=== PATIENT | female | born 1940 | race Caucasian/White ===

== ENCOUNTER 2020-12-24 11:08 | Outpatient (CLI) | payer MEDICARE, OTHER, SELFPAY ==
[2020-12-24 11:32] LABS: Hematocrit 41.1 % (37.0-47.0); Hemoglobin 13.5 g/dL (12.0-15.0)
[2020-12-24 11:43] LABS: Anion Gap 7 mmol/L (8-16); Blood Urea Nitrogen 12 mg/dL (7-17); Calcium 9.3 mg/dL (8.4-10.2); Carbon Dioxide 29 mmol/L (22-30); Chloride 99 mmol/L (98-107); Estimated Glomerular Filt Rate > 60; Glucose 103 mg/dL (65-110); Potassium 3.6 mmol/L (3.4-5.0); Sodium 135 mmol/L (137-145)
== END 2020-12-24 11:09 | disposition home or self-care (01) ==
LOC: ANHSURGERY 11:11
PROVIDERS: Anesthesiology; PCP Internal Medicine; Visit Provider Obstetrics & Gynecology
DX: Z01.812 Encounter for preprocedural laboratory examination (principal); N95.0 Postmenopausal bleeding; Z51.81 Encounter for therapeutic drug level monitoring; Z79.899 Other long term (current) drug therapy
CPT/HCPCS: 36415; 80048; 85014; 85018

== ENCOUNTER 2020-12-30 01:13 | Day surgery (SDC) | payer MEDICARE, OTHER, SELFPAY ==
[2020-12-20 12:27] VITALS: BMI 30.7
--- NOTE | 2020-12-24 13:10 | P.HP_ITS ---
H&P: HPI History of Present Illness Date/Time: 12/24/20 13:10 this is an 79-year-old female admitted for hysteroscopy dilatation curettage. She has had some mild postmenopausal bleeding. This was recently scheduled May and with the risks of COVID risks and benefits of this procedure reviewed in full Chief Complaint: postmenopausal bleeding Review of Systems Review of Systems: All systems reviewed & are unremarkable except as noted in HPI and below [facility] Social History Social History Smoking packs per day: 1.5 Smoking cigarettes per day: 30.0 Years smoked: 40 Smoking pack-years: 60.00 Smoking status: Former smoker Tobacco type: cigarettes Smoking end date: 10/31/92 Alcohol intake: current Substance use: never Additional living arrangements comments: S[facility] STAYS AT [facility] [phone] Spiritual care concerns: No Meds Home Medications and Allergies Home Medications Medication Instructions Recorded Confirmed Type albuterol sulfate [ProAir HFA] 1 puff INHALATION Q4-6H PRN 12/20/20 12/20/20 History amitriptyline 25 mg PO HS 12/20/20 12/20/20 History aspirin [Adult Low Dose Aspirin] 81 mg PO DAILY 12/20/20 12/20/20 History bimatoprost [Lumigan] 1 drp EACH EYE 12/20/20 12/20/20 History gabapentin 100 mg PO 12/20/20 12/20/20 History losartan-hydrochlorothiazide 0.5 tablet PO HS 12/20/20 12/20/20 History losartan-hydrochlorothiazide 1 tablet PO REPLACED BY [facility] 12/20/20 12/20/20 History rosuvastatin 10 mg PO 12/20/20 12/20/20 History Allergies Allergy/AdvReac Type Severity Reaction Status Date / Time acetaminophen [From Tylenol] Allergy Itching Verified 12/20/20 12:18 levofloxacin [From Levaquin] Allergy VISION Verified 12/20/20 12:18 CHANGES, DIZZINESS Exam Const: General: no acute distress Eyes: General: appearance normal, both eyes and all related structures Neck: Neck: supple and no JVD Thyroid: thyroid normal Resp: Effort & Inspection: normal respiratory effort Auscultation: clear to auscultation bilaterally Cardio: Rate: regular rate Rhythm: regular rhythm GI: Inspection: non-distended GI Palp: Yes Soft to palpation, No Tenderness to palpation present (GI) and No Guarding due to palpation present (GI) Auscultation: normal bowel sounds : External Female Exam: normal external appearance Speculum Exam - Vagina: normal appearance of the vagina Speculum Exam - Cervix: Cervical os closed Bimanual exam- vagina & uterus: uterine shape normal Bimanual Exam- Adnexa, other: adnexae mobile Skin: General skin exam: no rashes or lesions noted Extrem: General: normal to inspection and no edema Psych: Mental Status: mental status grossly normal Affect: normal affect Assessment and Plan Additional Plan impression: Postmenopausal bleeding Plan: Hysteroscopy/ dilatation and curettage
--- NOTE | 2020-12-30 06:15 | WPDHPUPDATE1 ---
History and Physical Update Update Date/Time: 12/30/20 06:15 History and Physical has been reviewed, including an updated exam of the patient. There are NO changes in the patient's condition. Risks, benefits, and alternatives have been discussed and questions answered. Patient agrees to proceed with procedure.
--- NOTE | 2020-12-30 12:03 | WPDANESEPPF ---
Anes - Initial Pre Proc Eval Procedure: Operation Date: 12/30/20 13:15 Proposed Procedures p Hysteroscopy, Dilation and Curettage - Aristeo Li MD Date/Time: 12/30/20 12:03 Surgeon: Aristeo Li MD Pre Op Diagnosis: Post Memopausal Bleeding Patient Data Age: 80 Gender: F Height: 1.61 m Weight: 80 kg Allergies Allergy/AdvReac Type Severity Reaction Status Date / Time acetaminophen [From Tylenol] Allergy Itching Verified 12/30/20 11:38 levofloxacin [From Levaquin] Allergy VISION Verified 12/30/20 11:38 CHANGES, DIZZINESS Home Medications Medication Instructions Recorded Confirmed Type albuterol sulfate [ProAir HFA] 1 puff INHALATION Q4-6H PRN 12/20/20 12/30/20 History amitriptyline 25 mg PO HS 12/20/20 12/30/20 History aspirin [Adult Low Dose Aspirin] 81 mg PO DAILY 12/20/20 12/30/20 History bimatoprost [Lumigan] 1 drp EACH EYE HS 12/20/20 12/30/20 History gabapentin 100 mg PO HS 12/20/20 12/30/20 History losartan-hydrochlorothiazide 0.5 tablet PO HS 12/20/20 12/30/20 History losartan-hydrochlorothiazide 1 tablet PO QA 12/20/20 12/30/20 History rosuvastatin 10 mg PO HS 12/20/20 12/30/20 History Patient hx anesthesia problems: none Family hx anesthesia problems: none PMFSH Past Medical History Medical History COPD (chronic obstructive pulmonary disease) Hyperlipidemia Hypertension Occipital neuralgia Trigeminal neuralgia Social History Social History Smoking packs per day: 1.5 Smoking cigarettes per day: 30.0 Years smoked: 40 Smoking pack-years: 60.00 Smoking status: Former smoker Tobacco type: cigarettes Smoking end date: 10/31/92 Alcohol intake: current Substance use: never Living arrangements: alone Additional living arrangements comments: SON STAYS AT [facility] HOU[facility] [phone] Spiritual care concerns: No Anes - Eval Final PreProcedure Day of Procedure 12/30/20 12:03 Patient weight: overweight Heart: regular rate and rhythm Lungs: decreased breath sounds Airway: Mallampati scale class II Neurological: alert and oriented Last oral intake: >/= 8 hours ASA classification: III Emergent: no Anesthetic plan: proceed Anesthesia type and monitoring: general GIVS and standard monitoring Informed Consent: The patient's anesthetic plan and its attendant risks and benefits were discussed with the patient/family/POA. Questions were solicited and answers provided to the satisfaction of the patient/family/POA.
[2020-12-30 12:06] VITALS: BP 144/64; PULSE 77; TEMP 36.8; O2SAT 99
[2020-12-30] MEDS: LACTATED RINGERS 1,000 ML 30 ML IV CONT (12:08)
--- NOTE | 2020-12-30 13:31 | P.OP_ITS ---
Procedure Note - Detailed Date of Procedure 12/30/20 Pre-op Diagnosis Post Memopausal Bleeding Post-op Diagnosis same Procedure Performed Hysteroscopy/dilatation and curettage Surgeon Aristeo Li MD Anesthesia MAC and local Indications This is an 80-year-old female with questionable post menopausal bleeding Findings Uterus sounded to 7cm with a very benign atrophic endometrium Description of Procedure The patient is prepped draped in the normal sterile fashion placed in the dorsal lithotomy position. Under excellent IV sedation weighted speculum placed in posterior fornix vagina. The anterior lip of the cervix grasped with a single- tooth tenaculum and 2.5cc of 1% xylocaine anesthesia placed at 2, 4, 8, 10:00 a.m. of the cervix. Uterus sounded to 7cm. Serial dilatation with fragmented dilators performed followed by passage of the 5mm visualizing hysteroscope. Normal saline was used as visualizing medium. No abnormalities were seen in photo documentation undertaken. The uterus was scraped over the entire 360? until a good grating sound was heard. When no further tissue removed the instruments removed. All sponge, needle, instrument counts were correct. Estimated Blood Loss 5 Packing No Pathology yes Complications No immediate complications Condition stable Disposition observation
[2020-12-30 13:37] VITALS: BP 148/67; PULSE 70; RESP 12; O2SAT 98
[2020-12-30 14:07] VITALS: BP 140/71; PULSE 65; RESP 12; O2SAT 99
[2020-12-30 14:37] VITALS: BP 158/71; PULSE 58; RESP 12; O2SAT 100
[2020-12-30 14:45] VITALS: BP 169/72; PULSE 62; RESP 12
== END 2020-12-30 14:55 | disposition home or self-care (01) ==
PROVIDERS: PCP Internal Medicine; Visit Provider Obstetrics & Gynecology
PROC: 0U5B8ZZ Destruction of Endometrium, Via Natural or Artificial Opening Endoscopic (ICD-10-PCS; CPT 58563; principal; 2020-12-30 13:15)
DX: N92.4 Excessive bleeding in the premenopausal period (principal); N85.8 Other specified noninflammatory disorders of uterus; Z87.891 Personal history of nicotine dependence; Z79.82 Long term (current) use of aspirin; Z79.51 Long term (current) use of inhaled steroids; J44.9 Chronic obstructive pulmonary disease, unspecified; I10 Essential (primary) hypertension; M54.81 Occipital neuralgia; G50.0 Trigeminal neuralgia
CPT/HCPCS: 58558; 88305; A9270; J2704; J3010; J7030; J7120

== ENCOUNTER 2022-05-25 09:45 | Inpatient (IN) | payer MEDICARE, OTHER, SELFPAY ==
[2022-05-25] VITALS (26 sets, daily range): BP systolic 114–154; BP diastolic 46–85; PULSE 65–98; RESP 13–22; TEMP 36.3–36.6; O2SAT 96–100; BMI 31.7
--- NOTE | ~2022-05-25 | US_ITS ---
Limited Abdominal Sonogram: Real-time sonographic imaging of the right upper quadrant was performed. Clinical History: Cirrhosis Findings: The liver appears normal with no evidence of mass lesion or bile duct dilatation. Main por glenn vein demonstrates normal direction of flow. The gallbladder is absent, compatible prior cholecyst ectomy. The common bile duct measures 5 mm. The visualized pancreas, aorta, and IVC are unremarkable . Right kidney measures 10 point centimeters in length, without evidence of hydronephrosis. Simple ri ght renal cyst measures 3.3 cm in diameter. Impression: Status post cholecystectomy. No other significant finding. Reviewed, dictated and finalized at location . IFIED ADDICTION COUNSELOR Impression: Status post cholecystectomy. No other significant finding.
--- NOTE | ~2022-05-25 | BM_ITS ---
EXAMINATION: CCL bone marrow asp w bx diag DATE: 05/27/2022 10:45 INDICATION: Pancytopenia. TECHNIQUE: A time-out was performed to verify the patient's name, date of , and procedure to b e performed. The procedure including the risks, benefits, and alternatives was discussed with the pat ient. Risks discussed included bleeding and infection. The patient understood the risks and agreed to proceed. The skin overlying the left ilium was prepped and draped in usual sterile fashion. Anesth etic was administered with 1% lidocaine subcutaneously. Moderate sedation was achieved with 1 mg Vers ed IV and 50 mg IV. An 11 gauge needle was inserted into the ilium with fluoroscopic guidance. Bone marrow was aspirated. An 8 gauge needle was then inserted into the ilium with fluoroscopic guidance. A core bone marrow biopsy was obtained. There were no immediate complications. Fluoroscopy exposure t jen was 0.0 minutes. The total number of images was 15. FINDINGS: Real-time fluoroscopy demonstrates a marker overlying the left posterior superior iliac spi ne. IMPRESSION: 1. Fluoro-guided bone marrow aspiration. 2. Fluoro-guided bone marrow core biopsy. Reviewed, dictated and finalized at location A. ERAGE BRANCH MANAGER
--- NOTE | ~2022-05-25 | XR_ITS ---
Clinical Indication: Shortness of breath PA and lateral views of the chest: Comparison: None Findings: The lungs are clear, without evidence of focal consolidation or pleural effusion. Cardiome diastinal silhouette is within normal limits. Bones and soft tissues are unremarkable. Impression: Normal chest. Reviewed, dictated and finalized at [facility]. CY WRITER Impression: Normal chest.
--- NOTE | 2022-05-25 09:56 | ECG_ITS ---
Measurements Intervals [place] Rate: 79 P: 69 SD: 222 QRS: -27 QRSD: 96 T: 66 QT: 369 QTc: 425 Interpretive Statements SINUS RHYTHM WITH FIRST DEGREE AV BLOCK CHANGE IN QRS MORPHOLOGY FROM LEFT BUNDLE BRANCH BLOCK TO NARROW COMPLEX INTERMITTENTLY LEFT VENTRICULAR HYPERTROPHY AND ST-T CHANGE CANNOT RULE OUT SEPTAL INFARCT, AGE INDETERMINATE BASELINE ARTIFACT- I, II, III, AVR, AVL, AVF, V1 ABNORMAL ECG NO PREVIOUS ECG AVAILABLE FOR COMPARISON Electronically Signed On 05-25-2022 11:04:13 PORTABLE TRACK CREW CHIEF by Kael Magallon D.O.
[2022-05-25 10:08] LABS: Immature Platelet Fraction Pct 10.6 % (0.9-11.2); Mean Corpuscular HGB Conc 32.7 g/dl (32-36); Mean Corpuscular Hemoglobin 30.3 pg (26-34); Mean Corpuscular Volume 92.8 fl (80-100); Mean Platelet Volume 11.2 fl (7.4-10.4); Platelet Count Result 68 k/mm3 (150-375); Red Blood Count 2.21 M/mm3 (4.2-5.4)
[2022-05-25 10:17] LABS: Alanine Aminotransferase 14 U/L (6-35); Albumin Level 4.2 g/dL (3.5-5.1); Alkaline Phosphatase 94 U/L (38-126); Anion Gap 8 mmol/L (8-16); Aspartate Amino Transferase 16 U/L (14-36); Bilirubin,Total 0.6 mg/dL (0.2-1.3); Blood Urea Nitrogen 19 mg/dL (7-17); Calcium 8.5 mg/dL (8.4-10.2); Carbon Dioxide 25 mmol/L (22-30); Chloride 103 mmol/L (98-107); Estimated CRCL calculation 54 ml/min; Estimated Glomerular Filt Rate > 60; Glucose 125 mg/dL (65-110); Potassium 3.2 mmol/L (3.4-5.0); Sodium 136 mmol/L (137-145)
[2022-05-25 10:31] LABS: White Blood Count 1.6 K/mm3 (4.5-10.0)
[2022-05-25 10:32] LABS: Hematocrit 20.5 % (37.0-47.0); Hemoglobin 6.7 g/dL (12.0-15.0)
[2022-05-25 10:39] LABS: Anisocytosis 1+ (NORMAL); Lymphocytes Absolute Manual 1.05 K/mm3 (1.1-4.5); Lymphocytes Percent Manual 66 % (18-44); Monocytes Absolute Manual 0.03 K/mm3 (0.1-0.90); Monocytes Percent Manual 2 % (3-9); Neutrophils Percent Manual 32 % (46-73); Platelet Estimate Decreased (Adequate); Total Cells Counted 100
[2022-05-25 10:40] LABS: Schistocytes None Seen (NORMAL)
[2022-05-25 11:38] LABS: Immature Reticulocyte Fraction 10.9 % (3.0-15.9); Reticulocytes Absolute 0.01 B/L (32.2-175.7)
[2022-05-25 11:46] LABS: Lactate Dehydrogenase 149 U/L (120-246)
[2022-05-25 11:53] LABS: Transferrin 161 mg/dL (206-381)
[2022-05-25 12:24] LABS: Iron 213 ug/dL (37-170); Percent Iron Saturation 84 % (20-50)
[2022-05-25] MEDS: SODIUM CHLORIDE 0.9% IV 250 ML 30 ML IV CONT (12:42)
[2022-05-25 12:53] LABS: Folic Acid 12.9 ng/mL (2.76->20)
--- NOTE | 2022-05-25 13:07 | ED.SOB ---
HPI - SOB/Dyspnea General Chief Complaint: Shortness of Breath/Dyspnea Stated Complaint: sob/pos anemia Time Seen by Provider: 05/25/22 10:49 History of Present Illness HPI Narrative: Patient is an 81-year-old female who presents ER with shortness of breath and concern for possible anemia. Patient recently hospitalized at [facility] due to being anemic. She received transfusion. She was supposed to follow-up with oncology today but became profoundly short of breath last night and when she called the clinic today they recommended she come to the ER. She is not on any blood thinners. No dark black stools. No fevers chills or sweats. No chest pain or chest pressure. Related Data Home Medications Medication Instructions Recorded Confirmed albuterol sulfate 90 mcg/actuation 1 puff inhalation Q4-6H PRN Dyspnea 12/20/20 05/25/22 aerosol inhaler (ProAir HFA) aspirin 81 mg tablet,delayed 81 mg PO HS 12/20/20 05/25/22 release (Adult Low Dose Aspirin) bimatoprost 0.01 % eye drops 1 drp EACH EYE HS 12/20/20 05/25/22 (Lumigan) gabapentin 100 mg capsule 100 mg PO HS 12/20/20 05/25/22 losartan 50 mg-hydrochlorothiazide 0.5 tablet PO HS 12/20/20 05/25/22 12.5 mg tablet losartan 50 mg-hydrochlorothiazide 1 tablet PO QAM 12/20/20 05/25/22 12.5 mg tablet rosuvastatin 10 mg tablet 10 mg PO HS 12/20/20 05/25/22 Allergies Allergy/AdvReac Type Severity Reaction Status Date / Time levofloxacin [From Levaquin] Allergy Intermediate VISION Verified 05/25/22 17:56 CHANGES, DIZZINESS acetaminophen [From Tylenol] Allergy Mild Itching Verified 05/25/22 17:56 Review of Systems Review of Systems: All systems reviewed & are unremarkable except as noted in HPI and below Constitutional: Constitutional: Denies chills, Reports fatigue and Denies fever(s) ENT: Denies nasal congestion and Denies sore throat Cardiovascular: Cardiovascular: Denies chest pain, Denies rapid heart rate and Denies radiating jaw, neck or arm pain Respiratory: Respiratory: Reports dyspnea and Denies wheezing Gastrointestinal: Gastrointestinal: Denies abdominal pain, Denies nausea and Denies vomiting Genitourinary: Genitourinary: Denies nocturia, Denies dysuria and Denies flank pain PMFSH Past Medical History Medical History COPD (chronic obstructive pulmonary disease) Hyperlipidemia Hypertension Occipital neuralgia Trigeminal neuralgia Family History Family History (Updated 05/25/22 @ 17:58 by Laura Ardon RN) Father Emphysema lung Chronic obstructive pulmonary disease Mother Colon cancer Hypertension Social History Social History Smoking packs per day: 2 Smoking cigarettes per day: 40.0 Years smoked: 40 Smoking pack-years: 80.00 Smoking status: Former smoker Tobacco type: cigarettes Smoking end date: 10/31/92 Additional smoking assessment comments: quit in 1994 (smoked 2 packs for over 40 years) Alcohol intake: never Substance use: never Lack of Transportation: No Lack of Food: Never True Current Housing: I Have Housing Concerned About Future Housing: No Difficulty Paying Gas/Electric Bills: No Difficulty Paying for Meds: No Currently Unemployed: No Education: High School Diploma/GED Difficulty w/ Childcare or Family Care: No Living arrangements: alone Additional living arrangements comments: [facility] STAYS AT [facility]-[phone] Spiritual care concerns: No Exam Narrative: GENERAL: Well-appearing, well-nourished, and in no acute distress. HEAD: Normocephalic, atraumatic. EYES: PERRL and EOMI. ENT: Mucous membranes moist. CHEST: Clear to auscultation. No respiratory distress. HEART: Regular rate and rhythm. Normal peripheral pulses. ABDOMEN: Soft, nontender, nondistendeds. EXTREMITIES: Normal range of motion. No edema. SKIN: Warm, dry,
--- NOTE | 2022-05-25 15:30 | PM.IMHP ---
H&P: HPI History of Present Illness Date/Time: 05/25/22 15:30 Chief Complaint: Shortness of breath. Narrative: This is a very pleasant 81-year-old female with hypertension, dyslipidemia, peripheral neuropathy, and COPD who presented to the emergency department via private vehicle from home for evaluation of shortness of breath. Patient provides the following history. She has not been feeling well for nearly a month with generalized malaise, fatigue, and lack of energy. She started to feel short of breath the last week in April and she was hospitalized at [facility] on 05/01/2022 with symptomatic anemia. She was transfused 3 units of blood and discharged home. It was suspected that she may have some sort of hematologic malignancy and she was referred to Dr. Del Rosario. In fact she had an appointment with him this morning at 10:00 however she was directed to the ED instead for evaluation of increasing shortness of breath with minimal activity in addition to lightheadedness. Her vital signs were stable on arrival to the ED. CBC showed the following: WBC 1.6, RBC 2.21, hemoglobin 6.7, hematocrit 20.5, MCV 92, platelets 64. Manual differential showed 32 neutrophils, 66 lymphocytes, 2 monocytes. She is being admitted in this setting for blood transfusion and hematology consultation. Patient's weight has remained stable. She has not noticed any in swollen lymph nodes. No known history of malignancy. She has not noticed any blood in her stools. Review of Systems Review of Systems: Twelve systems were reviewed and are negative except for as per HPI. [facility] Past Medical History Medical History (Updated 05/25/22 @ 20:08 by Saadia Vidal PA-C) Chronic obstructive pulmonary disease Hyperlipidemia Hypertension Occipital neuralgia Peripheral neuropathy Trigeminal neuralgia Surgical History Surgical History (Updated 05/25/22 @ 20:03 by Saadia Vidal PA-C) History of appendectomy History of cholecystectomy History of right knee joint replacement Family History Family History Father Emphysema lung Chronic obstructive pulmonary disease Mother Colon cancer Hypertension Social History Social History (Updated 05/25/22 @ 20:04 by Saadia Vidal PA-C) Social History: Surrogate medical decision maker: Asa Pascal, son. Code status: Full code. Smoking packs per day: 2 Smoking cigarettes per day: 40.0 Years smoked: 40 Smoking pack-years: 80.00 Smoking status: Former smoker Tobacco type: cigarettes Smoking end date: 10/31/92 Additional smoking assessment comments: Quit in 1994. Alcohol intake: never Substance use: never Lack of Transportation: No Lack of Food: Never True Current Housing: I Have Housing Concerned About Future Housing: No Difficulty Paying Gas/Electric Bills: No Difficulty Paying for Meds: No Currently Unemployed: No Education: High School Diploma/GED Difficulty w/ Childcare or Family Care: No Living arrangements: alone Additional living arrangements comments: The patient lives in her own home in [place]. Her son Asa stays with her occasionally. Additional occupation/education comments: Retired. Spiritual care concerns: No Meds Home Medications and Allergies Home Medications Medication Instructions Recorded Confirmed Type albuterol sulfate 90 mcg/actuation 1 puff inhalation Q4-6H PRN Dyspnea 12/20/20 05/25/22 History aerosol inhaler (ProAir HFA) aspirin 81 mg tablet,delayed 81 mg PO HS 12/20/20 05/25/22 History release (Adult Low Dose Aspirin) bimatoprost 0.01 % eye drops 1 drp EACH EYE HS 12/20/20 05/25/22 History (Lumigan) gabapentin 100 mg capsule 100 mg PO HS 12/20/20 05/25/22 History losartan 50 mg-hydrochlorothiazide 0.5 tablet PO HS 12/20/20 05/25/22 History 12.5 mg tablet losartan 50 mg-hydrochlorothiazide 1 tablet PO QAM 12/20/20 05/25/22 Hi
[2022-05-25 17:22] LABS: INR 1.1; Prothrombin Time 13.8 Seconds (11.1-14.7)
[2022-05-25 17:23] LABS: Partial Thromboplastin Time 25.6 SECONDS (22.3-36.8)
--- NOTE | 2022-05-25 17:50 | ADMGEN ---
This patient, Barbara Pascal, was admitted to [facility]. Patient/family oriented to hospital policies and general routines including ID bracelet, bed and alarms, visiting hours, pain management, procedures, bathroom and other care routines, personal items, smoking policy, room service/diet, and visiting hours. Information on how to activate the Rapid Response Team has been discussed. Patient/Family are encouraged to report perceived risks to care and to ask questions if they do not understand what they are told or what they should do.
[2022-05-25 19:18] LABS: Hematocrit 25.7 % (37.0-47.0); Hemoglobin 8.7 g/dL (12.0-15.0); Immature Platelet Fraction Pct 11.1 % (0.9-11.2); Mean Corpuscular HGB Conc 33.9 g/dl (32-36); Mean Corpuscular Hemoglobin 31.1 pg (26-34); Mean Corpuscular Volume 91.8 fl (80-100); Mean Platelet Volume 11.3 fl (7.4-10.4); Platelet Count Result 64 k/mm3 (150-375); Red Cell Distribution Width 15.9 % (11.5-14.5)
[2022-05-25 19:20] LABS: White Blood Count 1.9 K/mm3 (4.5-10.0)
[2022-05-25] MEDS: ROSUVASTATIN 10 MG TABLET PO (20:33)
[2022-05-25] MEDS: GABAPENTIN 100 MG CAPSULE PO (20:33)
[2022-05-25] MEDS: POTASSIUM CHLORIDE 20 MEQ TABLET 40 MEQ PO (20:33)
[2022-05-25] MEDS: LATANOPROST 0.005% OP SOLN 2.5 ML BTL 1 DROP EACH EYE (21:02)
[2022-05-25] MEDS: LOSARTAN POTASSIUM 25 MG TABLET PO (21:02)
[2022-05-26] VITALS (11 sets, daily range): BP systolic 119–141; BP diastolic 50–70; PULSE 71–93; RESP 16–24; TEMP 36.6–37.3; O2SAT 96–98
[2022-05-26 06:17] LABS: Anion Gap 2 mmol/L (8-16); Blood Urea Nitrogen 12 mg/dL (7-17); Calcium 8.1 mg/dL (8.4-10.2); Carbon Dioxide 27 mmol/L (22-30); Chloride 105 mmol/L (98-107); Estimated CRCL calculation 62 ml/min; Estimated Glomerular Filt Rate > 60; Glucose 103 mg/dL (65-110); Hematocrit 23.4 % (37.0-47.0); Hemoglobin 7.9 g/dL (12.0-15.0); Immature Platelet Fraction Pct 9.9 % (0.9-11.2); Magnesium 1.9 mg/dL (1.6-2.3); Mean Corpuscular HGB Conc 33.8 g/dl (32-36); Mean Corpuscular Hemoglobin 30.7 pg (26-34); Mean Corpuscular Volume 91.1 fl (80-100); Mean Platelet Volume 11.6 fl (7.4-10.4); Platelet Count Result 57 k/mm3 (150-375); Potassium 3.6 mmol/L (3.4-5.0); Red Blood Count 2.57 M/mm3 (4.2-5.4); Red Cell Distribution Width 16.6 % (11.5-14.5); Sodium 134 mmol/L (137-145)
[2022-05-26 06:21] LABS: White Blood Count 1.8 K/mm3 (4.5-10.0)
--- NOTE | 2022-05-26 06:35 | ADMGEN ---
This patient, Barbara Pascal, was admitted to [facility] at 0635. Patient/family oriented to hospital policies and general routines including ID bracelet, bed and alarms, visiting hours, pain management, procedures, bathroom and other care routines, personal items, smoking policy, room service/diet, and visiting hours. Information on how to activate the Rapid Response Team has been discussed. Patient/Family are encouraged to report perceived risks to care and to ask questions if they do not understand what they are told or what they should do.
[2022-05-26 06:46] LABS: Anisocytosis 2+ (NORMAL); Band Neutrophils Percent 5 % (0-6); Large Platelets Present; Lymphocytes Absolute Manual 1.08 K/mm3 (1.1-4.5); Metamyelocytes Percent 5 %; Monocytes Absolute Manual 0.05 K/mm3 (0.1-0.90); Monocytes Percent Manual 3 % (3-9); Myelocytes Percent 4 %; Neutrophils Percent Manual 23 % (46-73); Platelet Estimate Decreased (Adequate); Total Cells Counted 100
[2022-05-26 06:47] LABS: Hypochromasia 2+ (NORMAL); Schistocytes Rare (NORMAL)
[2022-05-26] MEDS: LOSARTAN POTASSIUM 50 MG TABLET PO (08:33)
--- NOTE | 2022-05-26 18:10 | PM.IMPN ---
Progress Note: A&P Assessment and Plan (1) Symptomatic anemia: Code(s): D64.9 - Anemia, unspecified Status: Acute (2) Pancytopenia: Code(s): D61.818 - Other pancytopenia Status: Acute (3) Hypokalemia: Code(s): E87.6 - Hypokalemia Status: Acute (4) Hypertension: Code(s): I10 - Essential (primary) hypertension Status: Acute (5) Hyperlipidemia: Code(s): E78.5 - Hyperlipidemia, unspecified Status: Acute (6) Chronic obstructive pulmonary disease: Code(s): J44.9 - Chronic obstructive pulmonary disease, unspecified Status: Acute (7) Peripheral neuropathy: Code(s): G62.9 - Polyneuropathy, unspecified Status: Acute Plan The patient presented to the ED for evaluation of shortness of breath, lightheadedness, fatigue, and weakness which has been getting progressively worse over the last several weeks. Recently hospitalized at [facility] for the same issue at which time she was transfused 3 units of blood. She was referred to Dr. Del Rosario for suspected hematologic malignancy. Patient feels better after transfusion. Dr Del Rosario has been consulted. Medications reviewed and these do not commonly cause pancytopenia. Iron studies noted - does not seem to have been drawn during the transfusion. Check RUQ US to check for cirrhosis. Hemochromatosis seems unlikely. BMB planned. BP well controlled. Potassium better now. Follow. No wheezing and lungs clear. Home tomorrow after BMB. Subjective Date/time seen: 05/26/22 18:10 Interval history: 81yo female with COPD and HTN here for shortness of breath and found to have pancytopenia. Feels better after treansfusion. No SOB or CP but has LEWIS walking back from the BR. No easy bruising. No bleeding gums. Exam Narrative: AF 99.1 119/51 93 16 98%ra Gen - NARD Chest - CTA bilaterally, nml RR CV - RRR S1/S2 Abd - Soft, NT/ND, Positive BS Ext - No pedal edema Neuro - Alert and appropriate Psych - Nml mood and affect Skin - Warm and dry Objective Data Vital Signs Vital Signs: Vital Signs - 24 hr 05/25/22 20:00 05/25/22 21:53 05/26/22 05:52 Temperature 97.3 F L 98.2 F Pulse Rate 72 86 71 Respiratory Rate 14 19 19 Blood Pressure 149/61 H 125/50 L Pulse Oximetry 100 98 96 Oxygen Delivery Room Air 05/26/22 08:31 05/26/22 08:00 05/26/22 09:34 Temperature 97.9 F Pulse Rate 74 Respiratory Rate 16 Blood Pressure 126/51 L 129/70 Pulse Oximetry 98 98 Oxygen Delivery Room Air 05/26/22 09:36 05/26/22 09:38 05/26/22 14:00 Temperature 99.1 F Pulse Rate 93 Respiratory Rate 16 Blood Pressure 129/66 135/67 119/51 L Pulse Oximetry 98 Oxygen Delivery Intake/Output Intake/Output: Intake & Output 05/23/22 05/24/22 05/25/22 05/26/22 23:59 23:59 23:59 23:59 Intake Total 950 840 Output Total 451 Balance 950 389 Meds/Results Medications: Active Medications Generic Name Dose Route Start Last Admin Trade Name Freq PRN Reason Stop Dose Admin Albuterol 1 puff 05/25/22 20:16 Albuterol Sulfate (*Sp) Aerosol 1 Puff INHALATION Q4-6H PRN Dyspnea Gabapentin 100 mg 05/25/22 21:00 05/25/22 20:33 Gabapentin 100 Mg Capsule PO 100 mg HS ELADIA Administration Latanoprost 1 drop 05/25/22 21:00 05/25/22 21:02 Latanoprost 0.005% Op Soln 2.5 Ml Btl EACH EYE 06/24/22 20:59 1 drop HS ELADIA Administration Losartan Potassium 50 mg 05/26/22 09:00 05/26/22 08:33 Losartan Potassium 50 Mg Tablet PO 06/25/22 08:59 50 mg QAM ELADIA Administration Losartan Potassium 25 mg 05/25/22 21:00 05/25/22 21:02 Losartan Potassium 25 Mg Tablet PO 06/24/22 20:59 25 mg HS ELADIA Administration Ondansetron HCl 4 mg 05/25/22 13:00 Ondansetron Inj 4 Mg/2 Ml Vial IV PUSH Q4H PRN Nausea Rosuvastatin Calcium 10 mg 05/25/22 21:00 05/25/22 20:33 Rosuvastatin 10 Mg Tablet PO 10 mg HS ELADIA Administration Ra
--- NOTE | 2022-05-26 18:37 | PDONCCN ---
HPI - Date of Consult Date/Time: 05/26/22 18:37 Requesting Physician: Dana Tidwell MD Primary Care Provider: Garcia Irvin, - Consult Narrative Reason for consult: Pancytopenia Narrative: Barbara Pascal is a 81 year old female with history of COPD, peripheral neuropathy, dyslipidemia and hypertension came into the hospital with increasing shortness of breath. She has been complaining of tiredness and fatigue for several months duration. She has been having some mental fogginess. She denies any melena hematochezia. She was hospitalized at [facility] in April 2020 with symptomatic anemia and received 3 units of packed red blood cell. Now she came into the hospital and the labs revealed hemoglobin of 6.7, [place] [address]. She has received 2 units of packed red blood cell. She denies any previous history of malignancy. Review of Systems - Review of Systems All systems reviewed & are unremarkable except as noted in HPI and [facility] Medical History: Medical History (Last Updated 05/25/22 @ 20:08 by Saadia Vidal PA-C) Chronic obstructive pulmonary disease Hyperlipidemia Hypertension Occipital neuralgia Peripheral neuropathy Trigeminal neuralgia Surgical History: Surgical History (Last Updated 05/25/22 @ 20:03 by Saadia Vidal PA-C) History of appendectomy History of cholecystectomy History of right knee joint replacement Family History: Family History (Last Reviewed 05/25/22 @ 20:03 by Saadia Vidal PA-C) Father Emphysema lung Chronic obstructive pulmonary disease Mother Colon cancer Hypertension - Social History Social History: Social History (Last Updated 05/25/22 @ 20:04 by Saadia Vidal PA-C) Alcohol Use: Alcohol intake: never Substance Use: Substance use: never Others: Spiritual care concerns: No Living Arrangements: Living arrangements: alone Smoking Status: Smoking status: Former smoker Tobacco type: cigarettes Smoking end date: 10/31/92 Smoking Pack-years: Smoking packs per day: 2 Smoking cigarettes per day: 40.0 Years smoked: 40 Smoking pack-years: 80.00 Comments: Additional smoking assessment comments: Quit in 1994. Social Determinants of Health: Has the Lack of Transportation Kept You From Medical Appointments or From Getting Medications?: No Within the Past 12 Months, Were You Worried Whether Your Food Would Run Out Before You Got Money to Buy More?: Never True What is Your Housing Situation Today?: I Have Housing Are You Worried That in the Next 2 Months, You May Not Have Your Own Housing to Live In?: No Do You Have Trouble Paying Your Heating Or Electricity Bill?: No Do You Have Trouble Paying For Medicines?: No Are You Currently Unemployed and Looking for Work?: No Highest Level of Education Completed: High School Diploma/GED Do You Have Trouble With Childcare or the Care of a Family Member?: No Exam - Vital Signs Vital Signs - 24 hr 05/25/22 20:00 05/25/22 21:53 05/26/22 05:52 Temperature 36.3 C L 36.8 C Pulse Rate 72 86 71 Respiratory Rate 14 19 19 Blood Pressure 149/61 H 125/50 L Pulse Oximetry 100 98 96 Oxygen Delivery Room Air 05/26/22 08:31 05/26/22 08:00 05/26/22 09:34 Temperature 36.6 C Pulse Rate 74 Respiratory Rate 16 Blood Pressure 126/51 L 129/70 Pulse Oximetry 98 98 Oxygen Delivery Room Air 05/26/22 09:36 05/26/22 09:38 05/26/22 14:00 Temperature 37.3 C Pulse Rate 93 Respiratory Rate 16 Blood Pressure 129/66 135/67 119/51 L Pulse Oximetry 98 Oxygen Delivery - Exam HEENT: EOMI, PERRLA, mucous membranes moist and pink Neck: supple. No: JVD Lungs: clear to auscultation, normal air movement Heart: no murmurs, gallops, or rubs, regular rhythm, regular rate Abdomen: abdomen soft, non-distended, normal bowel sounds Extremities: normal puls
[2022-05-26] MEDS: GABAPENTIN 100 MG CAPSULE PO (20:52)
[2022-05-26] MEDS: LOSARTAN POTASSIUM 25 MG TABLET PO (20:52)
[2022-05-26] MEDS: ROSUVASTATIN 10 MG TABLET PO (20:52)
[2022-05-26] MEDS: LATANOPROST 0.005% OP SOLN 2.5 ML BTL 1 DROP EACH EYE (20:53)
[2022-05-27 04:29] VITALS: BP 120/48; PULSE 83; RESP 18; TEMP 36.5; O2SAT 97
[2022-05-27 06:46] LABS: Hematocrit 23.4 % (37.0-47.0); Hemoglobin 7.9 g/dL (12.0-15.0); Immature Platelet Fraction Pct 10.3 % (0.9-11.2); Mean Corpuscular HGB Conc 33.8 g/dl (32-36); Mean Corpuscular Volume 91.8 fl (80-100); Mean Platelet Volume 10.7 fl (7.4-10.4); Platelet Count Result 55 k/mm3 (150-375); Red Blood Count 2.55 M/mm3 (4.2-5.4); Red Cell Distribution Width 16.7 % (11.5-14.5)
[2022-05-27 06:54] LABS: Anion Gap 5 mmol/L (8-16); Blood Urea Nitrogen 13 mg/dL (7-17); Calcium 7.9 mg/dL (8.4-10.2); Carbon Dioxide 25 mmol/L (22-30); Chloride 110 mmol/L (98-107); Estimated CRCL calculation 61 ml/min; Estimated Glomerular Filt Rate > 60; Glucose 104 mg/dL (65-110); Lactate Dehydrogenase 102 U/L (120-246); Potassium 3.9 mmol/L (3.4-5.0); Sodium 140 mmol/L (137-145)
[2022-05-27 07:18] LABS: White Blood Count 1.9 K/mm3 (4.5-10.0)
[2022-05-27 07:27] LABS: Atypical Lymphocytes Present; Lymphocytes Percent Manual 74 % (18-44); Monocytes Absolute Manual 0.05 K/mm3 (0.1-0.90); Monocytes Percent Manual 3 % (3-9); Neutrophils Percent Manual 23 % (46-73); Platelet Estimate Decreased (Adequate); Schistocytes None Seen (NORMAL); Total Cells Counted 100
[2022-05-27 07:33] LABS: INR 1.2; Prothrombin Time 14.3 Seconds (11.1-14.7)
[2022-05-27 07:34] LABS: Partial Thromboplastin Time 29.6 SECONDS (22.3-36.8)
[2022-05-27 08:00] VITALS: O2SAT 98
--- NOTE | 2022-05-27 08:41 | PM.IMPN ---
Progress Note: A&P Assessment and Plan (1) Symptomatic anemia: Code(s): D64.9 - Anemia, unspecified Status: Acute (2) Pancytopenia: Code(s): D61.818 - Other pancytopenia Status: Acute (3) Hypokalemia: Code(s): E87.6 - Hypokalemia Status: Acute (4) Hypertension: Code(s): I10 - Essential (primary) hypertension Status: Acute (5) Hyperlipidemia: Code(s): E78.5 - Hyperlipidemia, unspecified Status: Acute (6) Chronic obstructive pulmonary disease: Code(s): J44.9 - Chronic obstructive pulmonary disease, unspecified Status: Acute (7) Peripheral neuropathy: Code(s): G62.9 - Polyneuropathy, unspecified Status: Acute Plan The patient presented to the ED for evaluation of shortness of breath, lightheadedness, fatigue, and weakness which has been getting progressively worse over the last several weeks. Recently hospitalized at [facility] for the same issue at which time she was transfused 3 units of blood. She was referred to Dr. Del Rosario for suspected hematologic malignancy. Patient feels better after transfusion. Dr Del Rosario has been consulted. Medications reviewed and these do not commonly cause pancytopenia. Iron studies noted - does not seem to have been drawn during the transfusion. Check RUQ US to check for cirrhosis. Hemochromatosis seems unlikely. BMB planned. BP well controlled. Potassium better now. Follow. No wheezing and lungs clear. Home tomorrow after BMB. Subjective Date/time seen: 05/27/22 08:41 Interval history: 81yo female with COPD and HTN here for shortness of breath and found to have pancytopenia. Feels better after treansfusion. No SOB or CP but has LEWIS walking back from the BR. No easy bruising. No bleeding gums. Exam Narrative: AF 99.1 119/51 93 16 98%ra Gen - NARD Chest - CTA bilaterally, nml RR CV - RRR S1/S2 Abd - Soft, NT/ND, Positive BS Ext - No pedal edema Neuro - Alert and appropriate Psych - Nml mood and affect Skin - Warm and dry Objective Data Vital Signs Vital Signs: Vital Signs - 24 hr 05/26/22 09:34 05/26/22 09:36 05/26/22 09:38 Temperature Pulse Rate Respiratory Rate Blood Pressure 129/70 129/66 135/67 Pulse Oximetry Oxygen Delivery 05/26/22 14:00 05/26/22 20:00 05/26/22 20:02 Temperature 99.1 F Pulse Rate 93 Respiratory Rate 16 Blood Pressure 119/51 L 130/55 L 141/64 H Pulse Oximetry 98 Oxygen Delivery 05/26/22 20:04 05/26/22 20:00 05/26/22 20:00 Temperature 99.1 F Pulse Rate 93 93 Respiratory Rate 16 16 Blood Pressure 124/54 L 124/54 L Pulse Oximetry 98 98 Oxygen Delivery Room Air 05/26/22 21:45 05/27/22 04:29 05/27/22 08:00 Temperature 99.0 F 97.7 F Pulse Rate 80 83 Respiratory Rate 24 H 18 Blood Pressure 130/55 L 120/48 L Pulse Oximetry 98 97 98 Oxygen Delivery Room Air Intake/Output Intake/Output: Intake & Output 05/24/22 05/25/22 05/26/22 05/27/22 23:59 23:59 23:59 23:59 Intake Total 950 940 50 Output Total 451 250 Balance 950 489 -200 Meds/Results Medications: Active Medications Generic Name Dose Route Start Last Admin Trade Name Freq PRN Reason Stop Dose Admin Albuterol 1 puff 05/25/22 20:16 Albuterol Sulfate (*Sp) Aerosol 1 Puff INHALATION Q4-6H PRN Dyspnea Gabapentin 100 mg 05/25/22 21:00 05/26/22 20:52 Gabapentin 100 Mg Capsule PO 100 mg HS ELADIA Administration Latanoprost 1 drop 05/25/22 21:00 05/26/22 20:53 Latanoprost 0.005% Op Soln 2.5 Ml Btl EACH EYE 06/24/22 20:59 1 drop HS ELADIA Administration Losartan Potassium 50 mg 05/26/22 09:00 05/26/22 08:33 Losartan Potassium 50 Mg Tablet PO 06/25/22 08:59 50 mg QAM ELADIA Administration Losartan Potassium 25 mg 05/25/22 21:00 05/26/22 20:52 Losartan Potassium 25 Mg Tablet PO 06/24/22 20:59 25 mg HS ELADIA Administration Neomycin/Polymyxin/Bacitracin 1 applic 05/26/22 1
--- NOTE | 2022-05-27 08:42 | WPDMODSED ---
Moderate Sedation Note-Pt Data Patient Data Diagnosis: Pancytopenia. Present Complaint: Pancytopenia. Procedure to be performed/Plan: Fluoro-guided bone marrow biopsy of left ilium. Allergies Allergy/AdvReac Type Severity Reaction Status Date / Time levofloxacin [From Levaquin] Allergy Intermediate VISION Verified 05/25/22 17:56 CHANGES, DIZZINESS acetaminophen [From Tylenol] Allergy Mild Itching Verified 05/25/22 17:56 Home Medications Medication Instructions Recorded Confirmed Type albuterol sulfate 90 mcg/actuation 1 puff inhalation Q4-6H PRN Dyspnea 12/20/20 05/25/22 History aerosol inhaler (ProAir HFA) aspirin 81 mg tablet,delayed 81 mg PO HS 12/20/20 05/25/22 History release (Adult Low Dose Aspirin) bimatoprost 0.01 % eye drops 1 drp EACH EYE HS 12/20/20 05/25/22 History (Sruthi) gabapentin 100 mg capsule 100 mg PO HS 12/20/20 05/25/22 History losartan 50 mg-hydrochlorothiazide 0.5 tablet PO 12/20/20 05/25/22 History 12.5 mg tablet losartan 50 mg-hydrochlorothiazide 1 tablet PO QAM 12/20/20 05/25/22 History 12.5 mg tablet rosuvastatin 10 mg tablet 10 mg PO HS 12/20/20 05/25/22 History Current Medications: Active Medications Albuterol (Albuterol Sulfate (*Sp) Aerosol 1 Puff) 1 puff INHALATION Q4-6H PRN PRN Reason: Dyspnea Gabapentin (Gabapentin 100 Mg Capsule) 100 mg PO [facility] Last Admin: 05/26/22 20:52 Dose: 100 mg Latanoprost (Latanoprost 0.005% Op Soln 2.5 Ml Btl) 1 drop EACH EYE [facility] Stop: 06/24/22 20:59 Last Admin: 05/26/22 20:53 Dose: 1 drop Losartan Potassium (Losartan Potassium 50 Mg Tablet) 50 mg PO QAM [facility] Stop: 06/25/22 08:59 Last Admin: 05/26/22 08:33 Dose: 50 mg Losartan Potassium (Losartan Potassium 25 Mg Tablet) 25 mg PO [facility] Stop: 06/24/22 20:59 Last Admin: 05/26/22 20:52 Dose: 25 mg Neomycin/Polymyxin/Bacitracin (Neomycin/Polymyxin/Bacitracin Ointment 15 Gm Tube) 1 applic TOPICAL PRN PRN PRN Reason: with dressing changes Ondansetron HCl (Ondansetron Inj 4 Mg/2 Ml Vial) 4 mg IV PUSH Q4H PRN PRN Reason: Nausea Rosuvastatin Calcium (Rosuvastatin 10 Mg Tablet) 10 mg PO HS ELADIA Last Admin: 05/26/22 20:52 Dose: 10 mg Sedation/Anesthesia: No previous sedation/anesthesia problems (including family history). [facility] Past Medical History Medical History (Updated 05/26/22 @ 18:40 by Jamir Del Rosario MD) Chronic obstructive pulmonary disease Hyperlipidemia Hypertension Occipital neuralgia Peripheral neuropathy Trigeminal neuralgia Surgical History Surgical History (Updated 05/26/22 @ 18:40 by Jamir Del Rosario MD) History of appendectomy History of cholecystectomy History of right knee joint replacement Family History Family History Father Emphysema lung Chronic obstructive pulmonary disease Mother Colon cancer Hypertension Social History Social History (Updated 05/25/22 @ 20:04 by Saadia Vidal PA-C) Social History: Surrogate medical decision maker: Asa Pascal, son. Code status: Full code. Smoking packs per day: 2 Smoking cigarettes per day: 40.0 Years smoked: 40 Smoking pack-years: 80.00 Smoking status: Former smoker Tobacco type: cigarettes Smoking end date: 10/31/92 Additional smoking assessment comments: Quit in 1994. Alcohol intake: never Substance use: never Lack of Transportation: No Lack of Food: Never True Current Housing: I Have Housing Concerned About Future Housing: No Difficulty Paying Gas/Electric Bills: No Difficulty Paying for Meds: No Currently Unemployed: No Education: High School Diploma/GED Difficulty w/ Childcare or Family Care: No Living arrangements: alone Additional living arrangements comments: The patient lives in her own home in [place]. Her son Asa stays with her occasionally. Additional occupation/education comments: Retired. Spiritual care concerns:
--- NOTE | 2022-05-27 08:43 | PC.NURSE ---
Pt to biological lab technician for bone marrow biopsy
--- NOTE | 2022-05-27 09:26 | PC.NURSE ---
Pt returned from bone marrow biopsy via bed
[2022-05-27 09:35] VITALS: BP 144/54; PULSE 83; RESP 16; TEMP 36.7; O2SAT 99
[2022-05-27 09:50] VITALS: BP 99/50; PULSE 77; RESP 16; O2SAT 97
--- NOTE | 2022-05-27 09:53 | SUR.PHASEII ---
Pt sleeping, awakens to name, denies pain, no bleeding or hematoma noted, denies pain, report given to Laura TIRADO
[2022-05-27 10:04] VITALS: BP 108/53
[2022-05-27] MEDS: LOSARTAN POTASSIUM 50 MG TABLET PO (11:21)
--- NOTE | 2022-05-27 14:56 | PM.DS ---
DS: Admitting Diagnosis Discharge Date 05/27/22 Admitting Diagnosis sob DS: Discharge Diagnosis Discharge Diagnosis (1) Symptomatic anemia: Code(s): D64.9 - Anemia, unspecified Status: Acute (2) Pancytopenia: Code(s): D61.818 - Other pancytopenia Status: Acute (3) Hypokalemia: Code(s): E87.6 - Hypokalemia Status: Acute (4) Hypertension: Code(s): I10 - Essential (primary) hypertension Status: Acute (5) Hyperlipidemia: Code(s): E78.5 - Hyperlipidemia, unspecified Status: Acute (6) Chronic obstructive pulmonary disease: Code(s): J44.9 - Chronic obstructive pulmonary disease, unspecified Status: Acute (7) Peripheral neuropathy: Code(s): G62.9 - Polyneuropathy, unspecified Status: Acute Plan The patient presented to the ED for evaluation of shortness of breath, lightheadedness, fatigue, and weakness which has been getting progressively worse over the last several weeks. Recently hospitalized at [place] [facility] for the same issue at which time she was transfused 3 units of blood. She was referred to Dr. Del Rosario for suspected hematologic malignancy. Patient feels better after transfusion. Dr Del Rosario has been consulted. Medications reviewed and these do not commonly cause pancytopenia. Iron studies noted - does not seem to have been drawn during the transfusion. Check RUQ US to check for cirrhosis. Hemochromatosis seems unlikely. BMB planned. BP well controlled. Potassium better now. Follow. No wheezing and lungs clear. Home tomorrow after BMB. DS: Summary Hospital Course Hospital Course: 81-year-old female with hypertension, dyslipidemia, peripheral neuropathy, and COPD who presented to the emergency department via private vehicle from home for evaluation of shortness of breath. Patient provides the following history. She has not been feeling well for nearly a month with generalized malaise, fatigue, and lack of energy. She started to feel short of breath the last week in April and she was hospitalized at [facility] on 05/01/2022 with symptomatic anemia. She was transfused 3 units of blood and discharged home. It was suspected that she may have some sort of hematologic malignancy and she was referred to Dr. Del Rosario. She is being admitted in this setting for blood transfusion and hematology consultation. Bone marrow biopsy was performed concerning for myelodysplastic syndrome or acute leukemia or lymphoproliferative disorders. She was d/c in stable condition with close outpatient monitoring by hematology. Time Spent with Patient Time attestation: Total time spent providing and/or coordinating discharge services: Exam Narrative: AF 99.1 119/51 93 16 98%ra Gen - NARD Chest - CTA bilaterally, nml RR CV - RRR S1/S2 Abd - Soft, NT/ND, Positive BS Ext - No pedal edema Neuro - Alert and appropriate Psych - Nml mood and affect Skin - Warm and dry DS: Data Data Completed and Pending Pending studies at discharge: Pending at discharge 05/26/22 18:40 Bone Marrow [PTH] Routine Labs on day of discharge: Labs from last 24 hours 05/27/22 05/27/22 05/27/22 07:13 06:32 06:32 WBC 1.9 L RBC 2.55 L Hgb 7.9 L Hct 23.4 L MCV 91.8 MCH 31.0 MCHC 33.8 RDW 16.7 H Plt Count 55 L MPV 10.7 H Immature Gran % (Auto) Not Reportable Neut % (Auto) Not Reportable Lymph % (Auto) Not Reportable [place] % (Auto) Not Reportable Eos % (Auto) Not Reportable Baso % (Auto) Not Reportable Lymph # (Auto) Not Reportable [place] # (Auto) Not Reportable Eos # (Auto) Not Reportable Baso # (Auto) Not Reportable Abs Immat Gran (auto) Not Reportable Absolute Neuts (auto) Not Reportable Absolute Nucleated RBC Not Reportable Total Counted 100 Neutrophils % (Manual) 23 L Lymphocytes % (Manual) 74 H Monocytes % (Manual) 3 Nucleated RBC % Not Reportabl
== END 2022-05-27 15:16 | disposition home or self-care (01) | DRG 810 ==
LOC: ANHED 10:54 → ANH3MEDSUR 15:16 → ANHCPC 17:02
PROVIDERS: Internal Medicine; Physician Assistant; Radiology Diagnostic Radiology; Admitting Provider Family Medicine; Emergency Provider Emergency Medicine; PCP Internal Medicine; Referring Provider Internal Medicine Hematology & Oncology; Visit Provider Student in an Organized Health Care Education/Training Program
PROC: 079T3ZX Drainage of Bone Marrow, Percutaneous Approach, Diagnostic (ICD-10-PCS; principal; 2022-05-27 08:30)
DX: D61.818 Other pancytopenia (principal); D64.9 Anemia, unspecified; E78.5 Hyperlipidemia, unspecified; I10 Essential (primary) hypertension; G62.9 Polyneuropathy, unspecified; G50.0 Trigeminal neuralgia; J44.9 Chronic obstructive pulmonary disease, unspecified; Z87.891 Personal history of nicotine dependence; Z90.49 Acquired absence of other specified parts of digestive tract; Z96.651 Presence of right artificial knee joint; Z79.82 Long term (current) use of aspirin
CPT/HCPCS: 36415; 36430; 38222; 71046; 76705; 80048; 80053; 82607; 82728; 82746; 83540; 83550; 83615; 83735; 84443; 84466; 85025; 85027; 85046; 85055; 85610; 85730; 86850; 86900; 86901; 86920; 88184; 88185; 88305; 88311; 88313; 88341; 88342; 93005; 96360; 96361; 99285; A9270; G0378; J1642; J2250; J3010; J7040; J7050; P9016

== ENCOUNTER 2022-06-23 11:06 | Emergency (ER) | payer MEDICARE, OTHER, SELFPAY ==
[2022-06-23 11:31] VITALS: BP 138/79; PULSE 80; RESP 20; TEMP 36.9; O2SAT 100
[2022-06-23 12:01] LABS: Hematocrit 28.7 % (37.0-47.0); Hemoglobin 9.6 g/dL (12.0-15.0); Immature Platelet Fraction Pct 12.8 % (0.9-11.2); Lymphocytes Absolute Auto 0.92 K/mm3 (0.9-3.2); Lymphocytes Percent Auto 61.7 % (18.3-44.2); Mean Corpuscular HGB Conc 33.4 g/dl (32-36); Mean Corpuscular Hemoglobin 29.7 pg (26-34); Mean Corpuscular Volume 88.9 fl (80-100); Monocytes Absolute Auto 0.1 K/mm3 (0.1-0.6); Monocytes Percent Auto 8.7 % (2.6-8.5); Neutrophils Absolute Auto 0.4 K/mm3 (1.3-6.7); Neutrophils Percent Auto 29.6 % (45.5-73.1); Platelet Count Result 45 k/mm3 (150-375); Red Blood Count 3.23 M/mm3 (4.2-5.4); Red Cell Distribution Width 16.1 % (11.5-14.5)
[2022-06-23 12:10] LABS: Alanine Aminotransferase 15 U/L (6-35); Albumin Level 4.3 g/dL (3.5-5.1); Alkaline Phosphatase 94 U/L (38-126); Anion Gap 6 mmol/L (8-16); Aspartate Amino Transferase 17 U/L (14-36); Bilirubin,Total 0.7 mg/dL (0.2-1.3); Blood Urea Nitrogen 10 mg/dL (7-17); Calcium 8.8 mg/dL (8.4-10.2); Carbon Dioxide 25 mmol/L (22-30); Chloride 104 mmol/L (98-107); Estimated CRCL calculation 61 ml/min; Estimated Glomerular Filt Rate > 60; Glucose 108 mg/dL (65-110); Potassium 3.9 mmol/L (3.4-5.0); Sodium 135 mmol/L (137-145)
[2022-06-23 12:11] LABS: Partial Thromboplastin Time 28.7 SECONDS (22.3-36.8); Prothrombin Time 13.2 Seconds (11.1-14.7)
[2022-06-23 12:17] LABS: White Blood Count 1.5 K/mm3 (4.5-10.0)
--- NOTE | 2022-06-23 14:54 | PC.NURSE ---
1st encounter, pt comes to spot 6 from triage, pt c/o SOB and fatigue. pt states she usually needs a blood transfusion when she feels this way. pt airway patent, breathing even/slightly labored with increased work of breathing. pt on bedside monitor, denies any chest pain. pt states she has an appointment with her transport truck driver/oncologist in [address] Oliver at bedside assessing pt.
[2022-06-23 14:57] VITALS: BP 162/66; PULSE 68; RESP 20; O2SAT 100
--- NOTE | 2022-06-23 16:52 | ED.RECABL ---
HPI - Recheck/Abnormal Lab/Rx General Chief Complaint: Recheck/Abnormal Lab/Rx Stated Complaint: needs a blood transfusion Time Seen by Provider: 06/23/22 14:47 Source: patient and family Mode of arrival: ambulatory Limitations: no limitations History of Present Illness HPI narrative: Patient is 81 years old white female presents with shortness of breath since April 2022. Patient was seen by a lot of physician, had recent bone marrow biopsy, unknown result. Patient had 3 blood transfusions so far since April, last 1 was 10 days ago. She denies any fever, chills, nausea, vomiting, chest pain or back pain. Related Data Home Medications Medication Instructions Recorded Confirmed albuterol sulfate 90 mcg/actuation 1 puff inhalation Q4-6H PRN Dyspnea 12/20/20 05/25/22 aerosol inhaler (ProAir HFA) aspirin 81 mg tablet,delayed 81 mg PO HS 12/20/20 05/25/22 release (Adult Low Dose Aspirin) bimatoprost 0.01 % eye drops 1 drp EACH EYE HS 12/20/20 05/25/22 (Sruthi) gabapentin 100 mg capsule 100 mg PO HS 12/20/20 05/25/22 losartan 50 mg-hydrochlorothiazide 0.5 tablet PO HS 12/20/20 05/25/22 12.5 mg tablet losartan 50 mg-hydrochlorothiazide 1 tablet PO QAM 12/20/20 05/25/22 12.5 mg tablet rosuvastatin 10 mg tablet 10 mg PO HS 12/20/20 05/25/22 Allergies Allergy/AdvReac Type Severity Reaction Status Date / Time levofloxacin [From Levaquin] Allergy Intermediate VISION Verified 05/25/22 17:56 CHANGES, DIZZINESS acetaminophen [From Tylenol] Allergy Mild Itching Verified 05/25/22 17:56 Review of Systems Review of Systems: All systems reviewed & are unremarkable except as noted in HPI and below PMFSH Past Medical History Medical History Chronic obstructive pulmonary disease Hyperlipidemia Hypertension Occipital neuralgia Peripheral neuropathy Trigeminal neuralgia Surgical History Surgical History History of appendectomy History of cholecystectomy History of right knee joint replacement Family History Family History Father Emphysema lung Chronic obstructive pulmonary disease Mother Colon cancer Hypertension Social History Social History Social History: Surrogate medical decision maker: Asa Pascal, son. Code status: Full code. Smoking packs per day: 2 Smoking cigarettes per day: 40.0 Years smoked: 40 Smoking pack-years: 80.00 Smoking status: Former smoker Tobacco type: cigarettes Smoking end date: 10/31/92 Additional smoking assessment comments: Quit in 1994. Alcohol intake: never Substance use: never Lack of Transportation: No Lack of Food: Never True Current Housing: I Have Housing Concerned About Future Housing: No Difficulty Paying Gas/Electric Bills: No Difficulty Paying for Meds: No Currently Unemployed: No Education: High School Diploma/GED Difficulty w/ Childcare or Family Care: No Living arrangements: alone Additional living arrangements comments: The patient lives in her own home in [place]. Her son Asa stays with her occasionally. Additional occupation/education comments: Retired. Spiritual care concerns: No Exam Narrative: General appearance: Well-developed, well-nourished Skin: Normal color Head: Normocephalic, nontraumatic Eyes: Clear conjunctiva ENT: Oropharynx normal, ears normal, nose normal Neck: Supple, nontender Chest and respiratory: Airway patent, no respiratory distress, no accessory muscle use Heart: Regular rate/rhythm Abdomen: Soft, nontender, no organomegaly, quiet bowel sounds Vascular: Normal peripheral pulses, normal capillary refill. 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
[2022-06-23 17:21] VITALS: BP 151/63; PULSE 78; RESP 24; O2SAT 100
== END 2022-06-23 17:22 | disposition home or self-care (01) ==
PROVIDERS: Emergency Medicine; Emergency Provider Emergency Medicine; PCP Internal Medicine
DX: D46.9 Myelodysplastic syndrome, unspecified (principal); D61.818 Other pancytopenia; R06.00 Dyspnea, unspecified; J44.9 Chronic obstructive pulmonary disease, unspecified; E78.5 Hyperlipidemia, unspecified; I10 Essential (primary) hypertension; G62.9 Polyneuropathy, unspecified; Z79.82 Long term (current) use of aspirin; Z96.651 Presence of right artificial knee joint; Z87.891 Personal history of nicotine dependence
CPT/HCPCS: 36415; 80053; 85025; 85055; 85610; 85730; 86850; 86900; 86901; 99283

== ENCOUNTER 2022-07-06 11:12 | Observation (INO) | payer MEDICARE, OTHER, SELFPAY ==
[2022-07-06] VITALS (19 sets, daily range): BP systolic 115–149; BP diastolic 48–70; PULSE 65–98; RESP 13–21; TEMP 36.1–37.1; O2SAT 97–100
--- NOTE | ~2022-07-06 | XR_ITS ---
EXAMINATION: XR chest 2V DATE: 07/06/2022 11:44 INDICATION: Shortness of breath. TECHNIQUE: frontal and lateral views of the chest were obtained. COMPARISON: Chest radiograph dated 05/25/2022 FINDINGS: The lungs remain clear with no focal airspace opacities, pulmonary edema, pleural effusion or pneumot horax. The cardiomediastinal silhouette is normal. Cholecystectomy clips in the upper abdomen. Mild t o moderate thoracic spondylosis with chronic mild anterior wedging of a couple mid thoracic vertebral bodies. IMPRESSION: 1. No acute cardiopulmonary disease. Reviewed, dictated and finalized at location A. [employer]
--- NOTE | 2022-07-06 11:18 | ECG_ITS ---
Measurements Intervals [place] Rate: 69 P: [place]: 0 QRS: -23 QRSD: 98 T: 67 QT: 389 QTc: 418 Interpretive Statements SINUS RHYTHM WITH FIRST DEGREE AV BLOCK CANNOT RULE OUT SEPTAL INFARCT, AGE INDETERMINATE BORDERLINE ST ABNORMALITY- HIGH LATERAL LEADS BASELINE ARTIFACT- II, III, AVR, AVL, AVF, V1, V4 ABNORMAL ECG COMPARED TO ECG 05/25/2022 10:03:05 NO SIGNIFICANT CHANGES Electronically Signed On 07-06-2022 11:35:15 CHANGE DIRECTOR by Kael Magallon D.O.
[2022-07-06 11:39] LABS: Basophils Percent Auto 0.7 % (0.2-1.2); Hemoglobin 7.3 g/dL (12.0-15.0); Immature Granulocyte Percent A 7.4 % (0-0.5); Lymphocytes Absolute Auto 0.88 K/mm3 (0.9-3.2); Lymphocytes Percent Auto 64.7 % (18.3-44.2); Mean Corpuscular HGB Conc 33.2 g/dl (32-36); Mean Corpuscular Hemoglobin 29.2 pg (26-34); Mean Platelet Volume 11.4 fl (7.4-10.4); Monocytes Absolute Auto 0.1 K/mm3 (0.1-0.6); Monocytes Percent Auto 9.6 % (2.6-8.5); Neutrophils Absolute Auto 0.2 K/mm3 (1.3-6.7); Neutrophils Percent Auto 17.6 % (45.5-73.1); Platelet Count Result 47 k/mm3 (150-375); Red Cell Distribution Width 15.9 % (11.5-14.5)
[2022-07-06 11:51] LABS: White Blood Count 1.4 K/mm3 (4.5-10.0)
[2022-07-06 11:52] LABS: Alanine Aminotransferase 15 U/L (6-35); Albumin Level 3.9 g/dL (3.5-5.1); Alkaline Phosphatase 90 U/L (38-126); Anion Gap 8 mmol/L (8-16); Aspartate Amino Transferase 15 U/L (14-36); Bilirubin,Total 0.6 mg/dL (0.2-1.3); Blood Urea Nitrogen 17 mg/dL (7-17); Calcium 8.5 mg/dL (8.4-10.2); Carbon Dioxide 22 mmol/L (22-30); Chloride 104 mmol/L (98-107); Estimated CRCL calculation 60 ml/min; Estimated Glomerular Filt Rate > 60; Glucose 110 mg/dL (65-110); Sodium 134 mmol/L (137-145)
[2022-07-06 12:12] LABS: Atypical Lymphocytes Present; Ovalocytes 1+ (NORMAL); Platelet Estimate Decreased (Adequate); Poikilocytosis 1+ (NORMAL); Schistocytes 1+ (NORMAL)
--- NOTE | 2022-07-06 12:34 | ED.SOB ---
HPI - SOB/Dyspnea General Chief Complaint: Shortness of Breath/Dyspnea Stated Complaint: SOB Time Seen by Provider: 07/06/22 11:12 History of Present Illness HPI Narrative: Patient is an 81-year-old female who presents ER with shortness of breath. Has history of myelodysplastic syndrome and is required recurrent blood transfusions. She feels similar to previous states when she needed transfusion. No chest pain or chest pressure. No cough. Just having extreme fatigue and shortness of breath with exertion. She sees Dr. Del Rosario. Related Data Home Medications Medication Instructions Recorded Confirmed albuterol sulfate 90 mcg/actuation 1 puff inhalation Q4-6H PRN Dyspnea 12/20/20 07/06/22 aerosol inhaler (ProAir HFA) bimatoprost 0.01 % eye drops 1 drp EACH EYE HS 12/20/20 07/06/22 ([place]igan) gabapentin 100 mg capsule 100 mg PO HS 12/20/20 07/06/22 losartan 50 mg-hydrochlorothiazide 0.5 tablet PO HS 12/20/20 07/06/22 12.5 mg tablet losartan 50 mg-hydrochlorothiazide 1 tablet PO QAM 12/20/20 07/06/22 12.5 mg tablet rosuvastatin 10 mg tablet 10 mg PO HS 12/20/20 07/06/22 hydroxyzine HCl 25 mg tablet 25 mg PO HS PRN Insomnia 07/06/22 07/06/22 polyethylene glycol 3350 17 gram 17 g PO HS 07/06/22 07/06/22 oral powder packet (Miralax) Allergies Allergy/AdvReac Type Severity Reaction Status Date / Time levofloxacin [From Levaquin] Allergy Intermediate VISION Verified 07/06/22 11:26 CHANGES, DIZZINESS acetaminophen [From Tylenol] Allergy Mild Itching Verified 07/06/22 11:26 [facility] Past Medical History Medical History Chronic obstructive pulmonary disease Hyperlipidemia Hypertension Occipital neuralgia Peripheral neuropathy Trigeminal neuralgia Surgical History Surgical History History of appendectomy History of cholecystectomy History of right knee joint replacement Family History Family History Father Emphysema lung Chronic obstructive pulmonary disease Mother Colon cancer Hypertension Social History Social History Social History: Surrogate medical decision maker: Asa Pascal, son. Code status: Full code. Smoking packs per day: 1.5 Smoking cigarettes per day: 30.0 Years smoked: 40 Smoking pack-years: 60.00 Smoking status: Former smoker Tobacco type: cigarettes Second hand tobacco smoke exposure: Yes Smoking end date: 09/19/94 Additional smoking assessment comments: Quit in 1994. Alcohol intake: never Substance use: never Lack of Transportation: No Lack of Food: Never True Current Housing: I Have Housing Concerned About Future Housing: No Difficulty Paying Gas/Electric Bills: No Difficulty Paying for Meds: No Currently Unemployed: No Education: High School Diploma/GED Difficulty w/ Childcare or Family Care: No Living arrangements: alone Additional living arrangements comments: The patient lives in her own home in [place]. Her son Asa stays with her occasionally. Additional occupation/education comments: Retired. Spiritual care concerns: No Exam Narrative: GENERAL: Well-appearing, well-nourished, and in no acute distress. HEAD: Normocephalic, atraumatic. EYES: PERRL and EOMI. ENT: Mucous membranes moist. CHEST: Clear to auscultation. No respiratory distress. HEART: Regular rate and rhythm. Normal peripheral pulses. ABDOMEN: Soft, nontender, nondistended. EXTREMITIES: Normal range of motion. No edema. SKIN: Warm, dry, no rash. NEURO: Alert and oriented x3. PSYCH: Normal mood and affect. Course Course Emergency Course: Patient resting comfortably. Will transfuse. Patient quite neutropenic and I have discussed with hematology/oncology and they would like her to receive prophylactic antibiotics and antivirals. They w
[2022-07-06] MEDS: SULFAMETHOXAZOLE/TRIMETHOPRIM 800/160 MG DS TABLET 1 TAB PO ×2 (13:09→20:55)
[2022-07-06] MEDS: ACYCLOVIR 200 MG CAPSULE 400 MG PO (13:10)
[2022-07-06] MEDS: TUBING, BLOOD PLUM PUMP TUBING 1 EACH XX (14:19)
[2022-07-06] MEDS: SODIUM CHLORIDE 0.9% IV 250 ML 30 ML IV CONT (14:19)
--- NOTE | 2022-07-06 15:20 | PM.IMHP ---
H&P: HPI History of Present Illness Date/Time: 07/06/22 15:20 Chief Complaint: Shortness of breath. Narrative: This is a very pleasant 81-year-old female with hypertension, dyslipidemia, COPD, and myelodysplastic syndrome who presented to the emergency department for evaluation of shortness of breath. Patient provides the following history. She started having issues with shortness of breath last April and on workup she was found to be pancytopenic. She has been requiring blood transfusions every month since that time. A bone marrow biopsy in May 2022 was consistent with myelodysplastic syndrome and she is now being followed by Dr. Del Rosario. In any event she once again started to have shortness of breath with exertion, weakness, fatigue, and decreased energy over the last several days and she was referred to the ED.. Her vital signs were stable on arrival. Pertinent labs include a WBC of 1.4, hemoglobin 7.3, hematocrit 22, platelets 47. ED physician spoke with Dr. Del Rosario who recommended the patient be started on empiric ciprofloxacin and acyclovir given the neutropenia and he also recommended admission for transfusion. At the time my evaluation she has no complaints and she denies fever, chills, sweats, congestion, sore throat, chest pain, cough, resting shortness of breath, syncope, near syncope, nausea, vomiting, diarrhea, melena, hematochezia, hematemesis, epistaxis, and hemoptysis. Review of Systems Review of Systems: Twelve systems were reviewed and are negative except for as per HPI. [facility] Past Medical History Medical History (Updated 07/06/22 @ 21:07 by Saadia Vidal PA-C) Chronic obstructive pulmonary disease Hyperlipidemia Hypertension Myelodysplastic syndrome Occipital neuralgia Peripheral neuropathy Trigeminal neuralgia Surgical History Surgical History (Updated 07/06/22 @ 21:05 by Saadia Vidal PA-C) History of appendectomy History of bone marrow biopsy (05/2022) History of cholecystectomy History of right knee joint replacement Family History Family History Father Emphysema lung Chronic obstructive pulmonary disease Mother Colon cancer Hypertension Social History Social History Social History: Surrogate medical decision maker: Asa Pascal, son. Code status: Full code. Smoking packs per day: 1.5 Smoking cigarettes per day: 30.0 Years smoked: 40 Smoking pack-years: 60.00 Smoking status: Former smoker Tobacco type: cigarettes Second hand tobacco smoke exposure: Yes Smoking end date: 09/19/94 Additional smoking assessment comments: Quit in 1994. Alcohol intake: never Substance use: never Lack of Transportation: No Lack of Food: Never True Current Housing: I Have Housing Concerned About Future Housing: No Difficulty Paying Gas/Electric Bills: No Difficulty Paying for Meds: No Currently Unemployed: No Education: High School Diploma/GED Difficulty w/ Childcare or Family Care: No Living arrangements: alone Additional living arrangements comments: The patient lives in her own home in [place]. Her son Asa stays with her occasionally. Additional occupation/education comments: Retired. Spiritual care concerns: No Meds Home Medications and Allergies Home Medications Medication Instructions Recorded Confirmed Type albuterol sulfate 90 mcg/actuation 1 puff inhalation Q4-6H PRN Dyspnea 12/20/20 07/06/22 History aerosol inhaler (ProAir HFA) bimatoprost 0.01 % eye drops 1 drp EACH EYE HS 12/20/20 07/06/22 History (Sruthi) gabapentin 100 mg capsule 100 mg PO HS 12/20/20 07/06/22 History losartan 50 mg-hydrochlorothiazide 0.5 tablet PO HS 12/20/20 07/06/22 History 12.5 mg tablet losartan 50 mg-hydrochlorothiazide 1 tablet PO QAM 12/20/20 07/06/22 History 12.5 mg tablet rosuvastatin 10 mg tablet 10 mg PO
[2022-07-06] MEDS: ACYCLOVIR 400 MG TABLET PO (20:55)
[2022-07-06] MEDS: GABAPENTIN 100 MG CAPSULE PO (22:09)
[2022-07-06] MEDS: LATANOPROST 0.005% OP SOLN 2.5 ML BTL 1 DROP EACH EYE (22:10)
[2022-07-06] MEDS: hydrOXYzine HCL 25 MG TABLET PO (22:10)
[2022-07-06] MEDS: polyethylene glycoL 3350 17 GM POWD.PACK PO (22:13)
[2022-07-06] MEDS: LOSARTAN POTASSIUM 25 MG TABLET PO (22:13)
[2022-07-06] MEDS: ROSUVASTATIN 10 MG TABLET PO (22:14)
[2022-07-07] VITALS (7 sets, daily range): BP systolic 101–126; BP diastolic 50–54; PULSE 71–103; RESP 20; TEMP 36.2–36.6; O2SAT 98
[2022-07-07] LABS: Hematocrit 28.1 % (37.0-47.0); Hemoglobin 9.6 g/dL (12.0-15.0)
[2022-07-07 06:17] LABS: Hematocrit 26.2 % (37.0-47.0); Hemoglobin 8.9 g/dL (12.0-15.0); Immature Platelet Fraction Pct 12.5 % (0.9-11.2); Mean Corpuscular Hemoglobin 28.7 pg (26-34); Mean Corpuscular Volume 84.5 fl (80-100); Mean Platelet Volume 11.9 fl (7.4-10.4); Platelet Count Result 40 k/mm3 (150-375); Red Cell Distribution Width 15.8 % (11.5-14.5)
[2022-07-07 06:26] LABS: White Blood Count 1.7 K/mm3 (4.5-10.0)
[2022-07-07 06:28] LABS: Anion Gap 4 mmol/L (8-16); Blood Urea Nitrogen 13 mg/dL (7-17); Calcium 7.9 mg/dL (8.4-10.2); Carbon Dioxide 25 mmol/L (22-30); Chloride 109 mmol/L (98-107); Estimated CRCL calculation 60 ml/min; Estimated Glomerular Filt Rate > 60; Glucose 98 mg/dL (65-110); Magnesium 1.9 mg/dL (1.6-2.3); Potassium 3.8 mmol/L (3.4-5.0); Sodium 138 mmol/L (137-145)
[2022-07-07] MEDS: hydroCHLOROthiazide 12.5 MG CAPSULE PO (08:51)
[2022-07-07] MEDS: LOSARTAN POTASSIUM 50 MG TABLET PO (08:52)
[2022-07-07] MEDS: ACYCLOVIR 400 MG TABLET PO (08:52)
[2022-07-07] MEDS: SULFAMETHOXAZOLE/TRIMETHOPRIM 800/160 MG DS TABLET 1 TAB PO (08:52)
--- NOTE | 2022-07-07 13:46 | PM.DS ---
DS: Admitting Diagnosis Discharge Date 07/07/22 Admitting Diagnosis Shortness of breath DS: Discharge Diagnosis Discharge Diagnosis (1) Symptomatic anemia: Code(s): D64.9 - Anemia, unspecified Status: Acute (2) Myelodysplastic syndrome: Code(s): D46.9 - Myelodysplastic syndrome, unspecified Status: Acute (3) Neutropenia: Code(s): D70.9 - Neutropenia, unspecified Status: Acute (4) Hypertension: Code(s): I10 - Essential (primary) hypertension Status: Acute DS: Summary Hospital Course Reason for hospitalization: 81yo female with HTN, dyslipidemia, COPD, and myelodysplastic syndrome here for shortness of breath.?Please see H&P for details Hospital Course: Patient started to have dyspnea on exertion, weakness, fatigue, and decreased energy over the last several days and she was referred to the ED. Vital signs were stable. WBC of 1400 (ANC 240), hemoglobin 7.3, hematocrit 22, platelets 47K. ED physician spoke with Dr. Del Rosario who recommended the patient be started on empiric diflucan, ciprofloxacin and acyclovir given the neutropenia and he also recommended admission for transfusion. No symptoms to suggest blood loss. She received 2U PRBC. Her repeat WBC was 1700, Hgb 8.9 and plt 40K. She feels better. Stil with mild SOB walking to the bathroom but better overall. She was started on acyclovir. Diflucan added at discharge. Her allergy to Levaquin was vision changes and dizziness. Spoke with staff radiographer/ oncologist recommended starting Cipro and for patient to monitor symptoms. Patient was made aware that ciprofloxacin will be started and that she should call Dr Del Rosario if she has any symptoms and to stop Cipro immediately. She voices understanding. Patient overall did well and was able be discharged home on 07/07/2022. Status at Discharge Cognitive/behavioral status at discharge: Stable Time Spent with Patient Time attestation: Total time spent providing and/or coordinating discharge services: 38 minutes Time spent: Greater than 30 minutes Exam Narrative: AF 97.4 126/52 73 20 98% ra Gen - NARD Chest - CTA bilaterally, nml RR CV - RRR S1/S2 Abd - Soft, NT/ND, Positive BS Ext - No pedal edema Psych - Nml mood and affect Skin - Warm and dry DS: Data Data Completed and Pending Labs on day of discharge: Labs from last 24 hours 07/07/22 07/07/22 07/06/22 05:44 05:44 23:53 WBC 1.7 L* RBC 3.10 L Hgb 8.9 L 9.6 L Hct 26.2 L 28.1 L MCV 84.5 MCH 28.7 MCHC 34.0 RDW 15.8 H Plt Count 40 L MPV 11.9 H % Immature Plt Fraction 12.5 H Sodium 138 Potassium 3.8 Chloride 109 H Carbon Dioxide 25 Anion Gap 4 L BUN 13 Creatinine 0.60 L Estim Creat Clear Calc 60 Estimated GFR > 60 Glucose 98 Calcium 7.9 L Magnesium 1.9 Blood Type Antibody Screen Crossmatch 07/06/22 11:28 WBC RBC Hgb Hct MCV MCH MCHC RDW Plt Count MPV % Immature Plt Fraction Sodium Potassium Chloride Carbon Dioxide Anion Gap BUN Creatinine Estim Creat Clear Calc Estimated GFR Glucose Calcium Magnesium Blood Type O Positive Antibody Screen Negative Crossmatch See Detail Preliminary micro results at discharge 07/06/22 13:03 Blood Culture - Preliminary Blood Discharge Plan Discharge Attending physician on discharge: Clifford Bryant Consulting providers: Jamir Del Rosario Discharging Clinician: Clifford Bryant Anticipated Discharge Date/Time: 07/07/22 14:02 Patient Disposition: Home, Self-Care Activity: as tolerated Diet: regular Discharge Instructions: Please avoid large gathering, wear face coverings in public and practice social distance. Take precautions to avoid falls. Rise slowly from a lying or sitting position. Pause before standing or walking. Contact your doctor or call 911 and come to the Emergency Room if you h
== END 2022-07-07 14:35 | disposition home or self-care (01) ==
LOC: ANHED 11:46 → ANH3MEDSUR 19:26
PROVIDERS: Physician Assistant; Admitting Provider Internal Medicine; Emergency Provider Emergency Medicine; PCP Internal Medicine; Visit Provider Internal Medicine
DX: D46.9 Myelodysplastic syndrome, unspecified (principal); D70.9 Neutropenia, unspecified; I10 Essential (primary) hypertension; J44.9 Chronic obstructive pulmonary disease, unspecified; E78.5 Hyperlipidemia, unspecified; M54.81 Occipital neuralgia; R94.31 Abnormal electrocardiogram [ECG] [EKG]; G62.9 Polyneuropathy, unspecified; G50.0 Trigeminal neuralgia; Z87.891 Personal history of nicotine dependence; Z79.51 Long term (current) use of inhaled steroids; Z79.899 Other long term (current) drug therapy; Z83.6 Family history of other diseases of the respiratory system; Z82.49 Family history of ischemic heart disease and other diseases of the circulatory system
CPT/HCPCS: 36415; 36430; 71046; 80048; 80053; 83735; 85014; 85018; 85025; 85027; 85055; 86850; 86900; 86901; 86923; 87040; 93005; 99285; A9270; G0378; J7050; P9016

== ENCOUNTER 2022-07-13 11:29 | Emergency (ER) | payer MEDICARE, OTHER, SELFPAY ==
[2022-07-13] VITALS (7 sets, daily range): BP systolic 104–117; BP diastolic 40–52; PULSE 62–81; RESP 15–22; TEMP 36.4; O2SAT 99–100
--- NOTE | ~2022-07-13 | CT_ITS ---
EXAMINATION: CTA chest PE protocol DATE: 07/13/2022 14:35 INDICATION: Myelodysplastic syndrome presenting with shortness of breath and weakness TECHNIQUE: Computed tomography (CT) pulmonary angiogram of the chest was performed with 100 mL Omnipa que-350 intravenous contrast. Additional 3D reconstructions utilizing coronal maximum intensity proje ction (MIP) were performed. Automated exposure control and iterative reconstruction technique were em ployed. The dose-length product was 367.18 mGy-cm. COMPARISON: None FINDINGS: Excellent contrast opacification of the pulmonary arteries. There is mild streak artifact from dense contrast in the superior vena cava and right atrium. Mild scattered respiratory motion artifact which decreases sensitivity in some of the smaller subsegmental pulmonary arteries. Mild emphysema. No pne umonia, pulmonary edema, pleural effusion or pneumothorax. Tiny calcified right lower lobe nodule adry ng with calcified right hilar lymph node and small hepatic calcification, all consistent with old gra nulomatous disease. Heart size is normal. Atherosclerotic coronary artery calcifications. No pericard ial effusion. Thoracic aorta is normal in caliber with no dissection. No pathologically enlarged thor acic lymphadenopathy. 4.1 cm cyst at the upper pole of the right kidney. 7 mm hepatic cyst. Cholecyst ectomy clips at the gallbladder fossa. IMPRESSION: 1. No pulmonary embolism or other acute cardiopulmonary disease Reviewed, dictated and finalized at location B.
--- NOTE | ~2022-07-13 | XR_ITS ---
EXAMINATION: XR chest 2V DATE: 07/13/2022 12:41 INDICATION: Shortness of breath. TECHNIQUE: Frontal and lateral views of the chest were obtained. COMPARISON: Chest 2 views 07/06/2022, CT abdomen and pelvis 02/27/2008 FINDINGS: The chest demonstrates clear lungs without pneumonia, pleural effusion, or pneumothorax. Th e heart size is normal. Surgical clips in the right upper quadrant are likely from cholecystectomy. IMPRESSION: 1. No acute cardiopulmonary disease. Reviewed, dictated and finalized at location A.
--- NOTE | 2022-07-13 11:36 | ECG_ITS ---
Measurements Intervals [place] Rate: 65 P: 94 MA: 241 QRS: -20 QRSD: 100 T: 49 QT: 415 QTc: 434 Interpretive Statements SINUS RHYTHM WITH SINUS ARRHYTHMIA WITH FIRST DEGREE AV BLOCK CANNOT RULE OUT SEPTAL INFARCT, AGE INDETERMINATE BORDERLINE ST ABNORMALITY- HIGH LATERAL LEADS ABNORMAL ECG COMPARED TO ECG 07/06/2022 11:18:24 SINUS ARRHYTHMIA NOW PRESENT Electronically Signed On 07-13-2022 12:55:05 CDT by Kael Magallon D.O.
[2022-07-13 12:25] LABS: Hematocrit 24.8 % (37.0-47.0); Hemoglobin 8.4 g/dL (12.0-15.0); Immature Platelet Fraction Pct 10.8 % (0.9-11.2); Mean Corpuscular HGB Conc 33.9 g/dl (32-36); Mean Corpuscular Hemoglobin 29.2 pg (26-34); Mean Corpuscular Volume 86.1 fl (80-100); Mean Platelet Volume 12.8 fl (7.4-10.4); Platelet Count Result 42 k/mm3 (150-375); Red Blood Count 2.88 M/mm3 (4.2-5.4); Red Cell Distribution Width 15.4 % (11.5-14.5)
[2022-07-13 12:35] LABS: White Blood Count 1.2 K/mm3 (4.5-10.0)
--- NOTE | 2022-07-13 12:36 | PC.NURSE ---
Pt to XRAY via stretcher at this time.
--- NOTE | 2022-07-13 12:37 | ED.WEAKNESS ---
HPI - Weakness General Chief complaint: Weakness Stated complaint: weakness, dyspnea Time Seen by Provider: 07/13/22 11:50 Source: patient, family and old records reviewed Mode of arrival: EMS Limitations: no limitations History of Present Illness HPI Narrative: Patient is an 81-year-old female who presents to the ED via EMS with report of weakness and difficulty breathing. Niece at bedside assisted in providing information. They report patient was diagnosed with myelodysplastic syndrome within the last few months and has seen Dr. Miguel Ángel holguin/ hem/onc. They were planning to receive a second opinion with [facility], but patient has had intermittent episodes of weakness and shortness of breath and has since missed a few appointments over there. Patient has required several blood transfusions over the last few weeks, thought to be attributed to her myelodysplastic syndrome. Patient denies any recent bleeding, epistaxis, melena, rectal bleeding. Patient states the weakness and SOB comes on very quickly. She developed symptoms this morning, at which point EMS was called. Patient feeling better currently in the ED. She denies any focal weakness, vision changes, dizziness, lightheadedness, CP, fevers, cough or cold symptoms, abdominal pain, N/V. Related Data Home Medications Medication Instructions Recorded Confirmed albuterol sulfate 90 mcg/actuation 1 puff inhalation Q4-6H PRN Dyspnea 12/20/20 07/10/22 aerosol inhaler (ProAir HFA) bimatoprost 0.01 % eye drops 1 drp EACH EYE HS 12/20/20 07/10/22 (Lumigan) gabapentin 100 mg capsule 100 mg PO HS 12/20/20 07/10/22 losartan 50 mg-hydrochlorothiazide 0.5 tablet PO HS 12/20/20 07/10/22 12.5 mg tablet losartan 50 mg-hydrochlorothiazide 1 tablet PO QAM 12/20/20 07/10/22 12.5 mg tablet rosuvastatin 10 mg tablet 10 mg PO HS 12/20/20 07/10/22 polyethylene glycol 3350 17 gram 17 g PO HS 07/06/22 07/10/22 oral powder packet (Miralax) sulfamethoxazole 800 1 tablet PO QMWF 07/10/22 07/10/22 mg-trimethoprim 160 mg tablet Allergies Allergy/AdvReac Type Severity Reaction Status Date / Time levofloxacin [From Levaquin] Allergy Intermediate VISION Verified 07/13/22 11:39 CHANGES, DIZZINESS acetaminophen [From Tylenol] Allergy Mild Itching Verified 07/13/22 11:39 Review of Systems Review of Systems: CONSTITUTIONAL: Denies fever, chills, or sweats. EYES: Denies visual changes. ENT: Denies rhinorrhea, congestion, sore throat. CARDIOVASCULAR: Denies chest pain, palpitations, or edema. RESPIRATORY: See HPI. GASTROINTESTINAL: Denies abdominal pain, nausea, vomiting, or diarrhea. GENITOURINARY: Denies dysuria or hematuria. MUSCULOSKELETAL: Denies back pain, joint pain, or myalgia. NEUROLOGIC: See HPI. All systems reviewed & are unremarkable except as noted in HPI and below PMFSH Past Medical History Medical History Chronic obstructive pulmonary disease Hyperlipidemia Hypertension Myelodysplastic syndrome Occipital neuralgia Peripheral neuropathy Trigeminal neuralgia Surgical History Surgical History History of appendectomy History of bone marrow biopsy (05/2022) History of cholecystectomy History of right knee joint replacement Family History Family History Father Emphysema lung Chronic obstructive pulmonary disease Mother Colon cancer Hypertension Social History Social History Social History: Surrogate medical decision maker: Asa Pascal, son. Code status: Full code. Smoking packs per day: 1.5 Smoking cigarettes per day: 30.0 Years smoked: 40 Smoking pack-years: 60.00 Smoking status: Former smoker Tobacco type: cigarettes Second hand tobacco smoke exposure: Yes Smoking end date: 05/03/94
[2022-07-13 12:39] LABS: Alanine Aminotransferase 16 U/L (6-35); Albumin Level 3.8 g/dL (3.5-5.1); Alkaline Phosphatase 82 U/L (38-126); Anion Gap 7 mmol/L (8-16); Aspartate Amino Transferase 15 U/L (14-36); Bilirubin,Total 0.7 mg/dL (0.2-1.3); Blood Urea Nitrogen 17 mg/dL (7-17); Calcium 8.2 mg/dL (8.4-10.2); Carbon Dioxide 24 mmol/L (22-30); Chloride 100 mmol/L (98-107); Estimated CRCL calculation 54 ml/min; Estimated Glomerular Filt Rate > 60; Glucose 108 mg/dL (65-110); Potassium 3.3 mmol/L (3.4-5.0); Sodium 131 mmol/L (137-145)
[2022-07-13 12:41] LABS: Appearance Urine Clear (Clear); Bacteria Urine None Seen /hpf; Bilirubin Urine 1+ (Negative); Blood Urine Negative (Negative); Color Urine Dark Yellow (Yellow); Glucose Urine UA Negative (Negative); Hyaline Casts Urine Present /lpf; Ketones Urine Trace mg/dL (Negative); Leukocyte Esterase Ur Negative LEU/UL (Negative); Nitrate Urine Negative (Negative); Protein Urine 1+ mg/dL (Negative); RBC Urine 0-2 /hpf (0-2); Specific Grav Ur 1.025 (1.001-1.035); Squamous Epithelial Cell Urine Occasional /hpf (Few); WBC Urine 0-5 /hpf; pH Urine 6.5 (5.0-9.0)
[2022-07-13 12:49] LABS: Influenza A QL RT-PCR Negative (Negative); Influenza B QL RT-PCR Negative (Negative); RSV RNA, RT-PCR Negative (Negative); SARS-CoV-2 RNA PCR Negative
[2022-07-13 12:52] LABS: Add Urine Microscopic? YES
[2022-07-13] MEDS: POTASSIUM CHLORIDE 20 MEQ TABLET 40 MEQ PO (13:36)
[2022-07-13] MEDS: SODIUM CHLORIDE 0.9% IV 1,000 ML 999 ML IV CONT (13:36)
[2022-07-13 13:43] LABS: Band Neutrophils Percent 2 % (0-6); Lymphocytes Absolute Manual 0.58 K/mm3 (1.1-4.5); Monocytes Absolute Manual 0.03 K/mm3 (0.1-0.90); Monocytes Percent Manual 3 % (3-9); Neutrophils Absolute Manual 0.57 K/mm3 (1.7-7.2); Neutrophils Percent Manual 46 % (46-73); Platelet Estimate Decreased (Adequate); Total Cells Counted 100
[2022-07-13 13:44] LABS: Microcytosis 1+ (NORMAL); Schistocytes None Seen (NORMAL)
[2022-07-13 13:55] LABS: Troponin I < 0.012 ng/mL (0.000-0.034)
[2022-07-13 16:30] LABS: INR 1.1; Partial Thromboplastin Time 32.3 SECONDS (22.3-36.8); Prothrombin Time 13.7 Seconds (11.1-14.7)
== END 2022-07-13 16:59 | disposition home or self-care (01) ==
PROVIDERS: Emergency Medicine; Emergency Provider Physician Assistant; PCP Internal Medicine
DX: D46.9 Myelodysplastic syndrome, unspecified (principal); D61.818 Other pancytopenia; R06.00 Dyspnea, unspecified; R53.1 Weakness; Z20.822 Contact with and (suspected) exposure to COVID-19; J44.9 Chronic obstructive pulmonary disease, unspecified; E78.5 Hyperlipidemia, unspecified; I10 Essential (primary) hypertension; G62.9 Polyneuropathy, unspecified; Z96.651 Presence of right artificial knee joint; Z87.891 Personal history of nicotine dependence; I44.0 Atrioventricular block, first degree; R94.31 Abnormal electrocardiogram [ECG] [EKG]
CPT/HCPCS: 36415; 71046; 71275; 80053; 81001; 84484; 85025; 85055; 85610; 85730; 87637; 93005; 96360; 99284; A9270; J7030; Q9967